=== PATIENT | male | born 1950 | race Caucasian/White ===

== ENCOUNTER 2019-05-10 15:12 | Emergency (ER) | payer MEDICARE ==
--- NOTE | 2019-05-10 15:59 | Emergency Department Record ---
History of Present Illness - General Chief complaint: Flank Pain Stated complaint: FLANK PAIN Time Seen by Provider: 05/10/19 15:28 Source: Patient, RN notes reviewed Mode of Arrival: Wheelchair - History of Present Illness Initial comments: hematuria and right flank pain and history of kidney stones and he passed them spontaneously. Gross hematuria Onset/Timin -: Days(s) Location: Abdomen, Right flank Radiation: R flank Severity: Moderate Severity scale (1-10): 5 Improves with: None Worsens with: None Reports: Blood in urine - Related Data Previous Rx's Medication Instructions Recorded Hydrocodone/Acetaminophen [[place] 1 each PO Q4HR PRN #12 tablet 05/10/19 5-325 Tablet] Tamsulosin HCl [Flomax] 0.4 mg PO DAILY #14 cap.er.24h 05/10/19 Allergies Allergy/AdvReac Type Severity Reaction Status Date / Time No Known Allergies Allergy Unverified 05/10/19 14:20 Travel Screening - Travel/Exposure Within Last 30 Days Have you traveled within the last 30 days?: No - Additonal Travel Details Have you been exposed to anyone with a communicable illness?: No - Travel Symptoms Symptom Screening: None Review of Systems Reviewed: No additional complaints except as noted below Constitutional: Reports: As per HPI. Denies: Chills, Fever, Malaise, Night sweats, Weakness, Weight change Eyes: Reports: As per HPI. Denies: Eye discharge, Eye pain, Photophobia, Vision change ENT: Reports: As per HPI. Denies: Congestion, Dental pain, Ear pain, Epistaxis, Hearing loss, Throat pain Respiratory: Reports: As per HPI. Denies: Cough, Dyspnea, Hemoptysis, Stridor, Wheezes Cardiovascular: Reports: As per HPI. Denies: Arrhythmia, Chest pain, Dyspnea on exertion, Edema, Murmurs, Orthopnea, Palpitations, Paroxysmal nocturnal dyspnea, Rheumatic Fever, Syncope Endocrine: Reports: As per HPI. Denies: Fatigue, Heat or cold intolerance, Polydipsia, Polyuria Gastrointestinal: Reports: As per HPI. Denies: Abdominal pain, Constipation, Diarrhea, Hematemesis, Hematochezia, Melena, Nausea, Vomiting Genitourinary: Reports: As per HPI, Hematuria. Denies: Dysuria, Frequency, Incontinence, Retention, Testicular pain, Testicular mass, Urgency Musculoskeletal: Reports: As per HPI. Denies: Arthralgia, Back pain, Gout, Joint swelling, Myalgia, Neck pain Skin: Reports: As per HPI. Denies: Bruising, Change in color, Change in hair/nails, Lesions, Pruritus, Rash Neurological: Reports: As per HPI. Denies: Abnormal gait, Confusion, Headache, Numbness, Paresthesias, Seizure, Tingling, Tremors, Vertigo, Weakness Psychiatric: Reports: As per HPI. Denies: Anxiety, Auditory hallucinations, Depression, Homicidal thoughts, Suicidal thoughts, Visual hallucinations Hematological/Lymphatic: Reports: As per HPI. Denies: Anemia, Blood Clots, Easy bleeding, Easy bruising, Swollen glands Past Medical History - SOCIAL HISTORY Smoking Status: Never smoker Alcohol Use: None Drug Use: None - RESPIRATORY Hx Respiratory Disorders: No - CARDIOVASCULAR Hx Cardio Disorders: No - NEURO Hx Neuro Disorders: No - GI Hx GI Disorders: Yes Hx Reflux: Yes - Hx Genitourinary Disorders: Yes Hx Kidney Stones: Yes - ENDOCRINE Hx Endocrine Disorders: Yes Hx Thyroid Disease: Yes - MUSCULOSKELETAL Hx Musculoskeletal Disorders: No - PSYCH Hx Psych Problems: No - HEMATOLOGY/ONCOLOGY Hx Hematology/Oncology Disorders: No Family Medical History Any Significant Family History?: Yes Hx Heart Disease: Mother Physical Exam - General General Appearance: Alert, Oriented x3, Cooperative, No acute distress - Head Head exam: Normal inspection - Eye Eye exam: Normal appearance, PERRL Pupils: Normal accommodation - ENT ENT exam: Normal exam, Mucous membranes moist, Normal external ear exam, Normal orophraynx, TM's normal bilaterally Ear exam: Normal external inspection. negative: External canal tenderness Nasal Exam: Normal inspection. negative: Discharge, Sinus tenderness Mouth exam: Normal external inspection, Tongue normal Teeth exam: Normal inspection. negative: Dental caries Throat exam: Normal inspection. negative: Tonsillar erythema, Tonsillar exudate - Neck Neck exam: Normal inspection, Full ROM. negative: Tenderness - Respiratory Respiratory exam: Normal lung sounds bilaterally. negative: Respiratory distress - Cardiovascular Cardiovascular Exam: Regular rate, Normal rhythm, Normal heart sounds - GI/Abdominal GI/Abdominal exam: Soft, Normal bowel sounds, Tenderness (right flank pain) - Rectal Rectal exam: Deferred - exam: Deferred - Extremities Extremities exam: Normal inspection, Full ROM, Normal capillary refill. negative: Tenderness - Back Back exam: Reports: Normal inspection, Full ROM. Denies: Muscle spasm, Rash noted, Tenderness - Neurological Neurological exam: Alert, Normal gait, Oriented X3, Reflexes normal - Psychiatric Psychiatric exam: Normal affect, Normal mood - Skin Skin exam: Dry, Intact, Normal color, Warm Course Vital Signs 05/10/19 15:22 Temperature 97.8 F Pulse Rate 82 Respiratory 16 Rate Blood Pressure 138/89 Pulse Ox 100 Medical Decision Making - Data Complexity MDM Data: Labs Ordered and/or Reviewed, X-Ray Ordered and/or Reviewed (kedney stones 3 mm three stones two at the ureteropelvic junction adn one at the UV junction) - Lab Data Result diagrams: 05/10/19 16:00 05/10/19 16:00 Disposition Clinical Impression: Kidney stones Hematuria Qualifiers: Hematuria type: gross Qualified Code(s): R31.0 - Gross hematuria Hydronephrosis Qualifiers: Hydronephrosis type: with ureteral calculous obstruction Qualified Code(s): N13.2 - Hydronephrosis with renal and ureteral calculous obstruction Disposition: Home, Self-Care Condition: (1) Good Instructions: Kidney Stones (ED), Renal Colic (ED), How to Strain Your Urine (ED) Additional Instructions: follow up with Dr. Julian in [facility] or in [facility] office number will be given to him. return to the ED if fever,vomiting or severe pain. Call Dr Julian's office tomorrow Prescriptions: Hydrocodone/Acetaminophen [[place] 5-325 Tablet] 1 each PO Q4HR PRN #12 tablet PRN Reason: Pain - Severe (8-10) Tamsulosin HCl [Flomax] 0.4 mg PO DAILY #14 cap.er.24h Forms: Patient Portal Access Time of Disposition: 17:24 Quality - Quality Measures Quality Measures: N/A - Blood Pressure Screening Does Patient Have Any of the Following: No Blood Pressure Classification: Pre-Hypertensive BP Reading Systolic Measurement: 138 Diastolic Measurement: 89 Screening for High Blood Pressure: < Pre-Hypertensive BP, F/U Documented > [[id number]] Pre-Hypertensive Follow-up Interventions: Referral to alternative/primary care provider.
[2019-05-10 16:05] LABS: ABSOLUTE NEUTROPHIL COUNT 7.83; BASO % 0.7 % (0-6); EOS % 1.9 % (0-6); GRAN % 70.7 % (47-80); HEMATOCRIT 45.1 % (42.0-52.0); HEMOGLOBIN 15.2 gm/dl (14.0-18.0); LYMPH % 18.9 % (16-45); MEAN CELL VOLUME 79.8 fl (81-97); MEAN CORPUSCULAR HEMOGLOBIN 26.9 pg (27-33); MEAN CORPUSCULAR HGB CONC 33.7 g/dl (32-36); MEAN PLATELET VOLUME 10.9 fl (7.4-10.4); MONO % 7.8 % (0-9); PLATELET COUNT 272 K/uL (130-400); RED BLOOD COUNT 5.65 M/uL (4.40-5.70); RED CELL DISTRIBUTION WIDTH 13.8 % (11.5-14.5); WHITE BLOOD COUNT W/O DIFF 11.1 K/uL (4.2-12.2)
[2019-05-10 16:13] LABS: BLOOD UREA NITROGEN 18 mg/dL (8-23)
[2019-05-10 16:14] LABS: CREATININE 1.1 mg/dL (0.7-1.2); EST GLOMERULAR FILTRATION RATE > 60 mL/min
[2019-05-10 16:16] LABS: GLUCOSE,RANDOM 187 mg/dL (74-109)
[2019-05-10 16:41] LABS: URINE APPEARANCE TURBID; URINE BILIRUBIN SMALL (NEGATIVE); URINE BLOOD LARGE (NEGATIVE); URINE COLOR RED; URINE GLUCOSE (UA) NEGATIVE (NEGATIVE); URINE KETONE TRACE (NEGATIVE); URINE LEUKOCYTE ESTERASE NEGATIVE (NEGATIVE); URINE NITRITE POSITIVE (NEGATIVE)
[2019-05-10 16:45] LABS: URINE BACTERIA FEW; URINE WBC 0 - 2 (0-2/hpf)
[2019-05-10] MEDS ORDERED: TAMSULOSIN HCL 0.4 MG CAP.ER.24H PO ONE (17:19)
--- NOTE | 2019-05-12 08:59 | CT SCAN REPORT ---
STUDY: CT abdomen and pelvis without contrast. CLINICAL HISTORY: Right flank pain. TECHNIQUE: Standard CT imaging of the abdomen and pelvis without IV contrast. COMPARISON: None. FINDINGS: The lung bases are clear. The liver, gallbladder, pancreas, spleen, and adrenal glands are unremarkable. There is mild right hydronephrosis. There are 2 calculi at the right ureteropelvic junction measuring 5 mm and 4 mm. There is an additional calculus at the right ureterovesical junction measuring 3 mm. Several additional right renal stones measure up to 2 mm. No left nephrolithiasis or hydronephrosis. No bowel dilatation. The bladder is decompressing, not well evaluated. Mild colonic diverticulosis. The appendix is normal. No free fluid or free air. No retroperitoneal adenopathy. No destructive osseous lesion. IMPRESSION: Mild right hydronephrosis with 2 calculi at the right ureteropelvic junction measuring up to 5 mm and an additional calculus at the right ureterovesical junction measuring 3 mm. MTDD
== END 2019-05-10 15:38 | disposition home or self-care (01) ==
LOC: ER 15:12
DX: N13.2 Hydronephrosis with renal and ureteral calculous obstruction (principal); R31.0 Gross hematuria; Z87.442 Personal history of urinary calculi
CPT/HCPCS: 74176; 80048; 81001; 85025; 99283; 99284